=== PATIENT | female | born 1955 | race Caucasian/White ===

== ENCOUNTER → 2017-06-30 | Day surgery (SDC) | payer OTHER ==
[~2017-06-30] VITALS: Ht 167.6 cm; Wt 92.5 kg
[~2017-06-30] MED LIST: AMLODIPINE BESYL5 M1 PO; ASPIRIN EC81 M1 PO; CARDIZEM CD180 M1 PO; CENTRUM SILVER1 EAC3 PO; CHLORTHALIDONE25 M1 PO; DICLOFENAC SODI75 M2 PO; DILTIAZEM ER120 M2 PO; DIOVAN320 M1 PO; FENOFIBRATE145 M1 PO; GLUCOSAMINE &1 EAC1 PO; LABETALOL HCL200 M1 PO; LEVOXYL75 MCG PO; LISINOPRIL-HCT1 EACH PO; PRADAXA150 M1 PO; PRAVASTATIN SOD40 M2 PO; SINGULAIR10 M1 PO; TAPAZOLE5 MG PO; VITAMIN D31000 UNI2 PO; VITAMIN D5000 UNIT PO
--- NOTE | 2017-06-30 10:38 | Operative Report ---
Operative/Inv Procedure Report Surgery Date: 06/30/17 Name of Procedure: Right lumpectomy with wire localization Pre-Operative Diagnosis: Right breast DCIS Post-Operative Diagnosis: Same Estimated Blood Loss: scant Surgeon/Utilities Ground Worker: Aziza Thompson MD Anesthesia: local monitored anesthesi Specimens: Right lumpectomy, cranial margin, caudal margin, medial margin, lateral margin, deep margin, skin margin Operative/Procedure Note Note: Patient is DCIS diagnosed by core needle biopsy. She is brought to the operating room for right lumpectomy. Wire localization was performed and the films reviewed. As of Ancef was given and the breast was prepped and draped in a sterile fashion using ChloraPrep. Local anesthesia 1% lidocaine exception Marcaine was given and a curvilinear incision was made in the upper outer quadrant. Incision the air concern was grasped using an Allis clamp and dissected using electrocautery. The specimen was removed and marked for orientation using margin map. intraoperative x-ray confirmed the presence of the clip in specimen. Additional margins were taken in the cranial, caudal, medial, lateral, deep, and superficial. Clips were used to [place] the margins a lumpectomy. Deep tissue was proximal made using interrupted Vicryl sutures and the skin was closed using running Biosyn subcuticular stitch. Steri-Strips and sterile dressings were applied and patient was transferred to the recovery room in satisfactory condition having tolerated the procedure well.
--- NOTE | 2017-06-30 17:57 | MAMMOGRAPHY REPORT ---
EXAMINATION: MM NEEDLE LOCALIZATION SPECIMEN FROM THE BREAST, RIGHT CLINICAL INDICATION: Radiograph of the lumpectomy specimen obtained from the upper outer quadrant of the right breast at site of biopsy-proven DCIS. COMPARISON: Preoperative needle localization films. TECHNIQUE: Single specimen radiograph was obtained. FINDINGS: The radiograph of the excised surgical specimen shows that the hookwire is delivered intact and the marker clip and calcifications are identified in the specimen. IMPRESSION: Satisfactory excision of the targeted lesion. These findings were communicated to the surgeon in the OR at the time of specimen radiography.
--- NOTE | 2017-07-03 09:12 | MAMMOGRAPHY REPORT ---
EXAMINATION: MM GUIDED NEEDLE LOCALIZATION BREAST, RIGHT CLINICAL INFORMATION: Needle localization of biopsy-proven DCIS in the right upper outer quadrant. COMPARISON: Mammogram dated 05/12/2017. Stereotactic biopsy dated 05/26/2017. TECHNIQUE NEEDLE LOC: Proper informed consent is obtained from the patient after discussion of the procedure, potential risks and complications, and alternatives including declining the procedure today. Patient was given an opportunity for questions. The patient appeared to understand. The patient consented to the procedure and signed the consent form. GUIDANCE: Digital mammography. APPROACH: Lateral approach. TARGET: Biopsy clip in the upper outer quadrant of the right breast. ANESTHESIA: 10 mL lidocaine 2% LOCALIZATION MARKER: The Influences 5 cm needle. The skin was prepped and local anesthesia administered. The needle was positioned and position assessed with mammography. The wire was hooked into position. The patient tolerated the procedure well and had no immediate complication. Diagram was marked for the surgeon. The target is located at the distal thick thin junction of the wire, 2.3 cm deep to the skin with 11.5 cm of the wire remaining external to the skin. IMPRESSION: Status post right breast needle localization with wire hooked into position. The target is located at the distal thick thin junction of the wire, 2.3 cm deep to the skin with 11.5 cm of the wire remaining external to the skin.
== END ==
LOC: STS 02:50
DX: D05.11 Intraductal carcinoma in situ of right breast (principal); I10 Essential (primary) hypertension; Z87.891 Personal history of nicotine dependence; I48.91 Unspecified atrial fibrillation; Z79.82 Long term (current) use of aspirin
CPT/HCPCS: J0690; J2001; J2250